=== PATIENT | female | born 1950 | race Caucasian/White ===

== ENCOUNTER 2018-01-31 11:56 | Outpatient (CLI) | payer MEDICARE | END 2018-01-31 11:57 | disposition home or self-care (01) | LOC: BICMAMMO 11:56 | PROVIDERS: ATTEND Obstetrics & Gynecology | DX: Z12.31 Encounter for screening mammogram for malignant neoplasm of breast (principal); Z80.3 Family history of malignant neoplasm of breast | CPT/HCPCS: 77063; 77067 ==

== ENCOUNTER 2018-03-07 10:01 | Outpatient (CLI) | payer MEDICARE | END 2018-03-07 10:02 | disposition home or self-care (01) | LOC: BICMAMMO 10:01 | PROVIDERS: ATTEND Obstetrics & Gynecology | DX: Z13.820 Encounter for screening for osteoporosis (principal); M81.0 Age-related osteoporosis without current pathological fracture | CPT/HCPCS: 77080 ==

== ENCOUNTER 2020-03-07 10:18 | Outpatient (CLI) | payer MEDICARE ==
--- NOTE | 2020-03-07 10:39 | BD ---
EXAM: DEXA bone density examination HISTORY: 69-year-old postmenopausal female for screening COMPARISON: None FINDINGS: L1--bone mineral density 0.825 g/sq cm; T score -1.5 L2--bone mineral density 0.886 g/sq cm; T score -1.3 L3--bone mineral density 0.932 g/sq cm; T score -1.4 L4--bone mineral density 0.972 g/sq cm; T score -0.8 Total L1-L4--bone mineral density 0.911 g/sq cm; T score -1.2 Left femoral neck--bone mineral density0.529; T score -2.9 Total proximal left femur--bone mineral density 0.680; T score -2.2 IMPRESSION: Osteopenia.
== END 2020-03-07 10:19 | disposition home or self-care (01) ==
LOC: BICMAMMO 10:18
PROVIDERS: ATTEND Family Medicine Sports Medicine
DX: M81.0 Age-related osteoporosis without current pathological fracture (principal); M85.88 Other specified disorders of bone density and structure, other site
CPT/HCPCS: 77080

== ENCOUNTER 2023-04-22 09:42 | Day surgery (SDC) | payer MEDICARE ==
[2023-04-22] MEDS ORDERED: Acetaminophen 500 MG TAB PO SCH (10:15)
[2023-04-22] MEDS ORDERED: diphenhydrAMINE 25 MG CAP PO SCH (10:15)
[2023-04-22] MEDS ORDERED: diphenhydrAMINE 25 MG CAP ONE (10:18)
[2023-04-22] MEDS ORDERED: Acetaminophen 500 MG TAB ONE (10:18)
[2023-04-22 16:12] VITALS: BP 168/75; TEMP 98.1
== END 2023-04-22 16:15 | disposition home or self-care (01) ==
LOC: ONC/OP 09:42
PROVIDERS: ATTEND Internal Medicine Hematology & Oncology
DX: D64.9 Anemia, unspecified (principal); D69.6 Thrombocytopenia, unspecified
CPT/HCPCS: 36430; 86850; 86900; 86901; 86920; P9016; J1642

== ENCOUNTER 2023-05-28 08:50 | Day surgery (SDC) | payer MEDICARE ==
[~2023-05-28 08:50] MED LIST: Acetaminophen 500 MG TAB PO SCH; diphenhydrAMINE 25 MG CAP PO SCH
[2023-05-28] MEDS ORDERED: diphenhydrAMINE 25 MG CAP ONE (09:45)
[2023-05-28] MEDS ORDERED: Acetaminophen 500 MG TAB ONE (09:45)
[2023-05-28 15:20] VITALS: BP 161/69; TEMP 98
== END 2023-05-28 13:12 | disposition home or self-care (01) ==
LOC: ONC/OP 08:50
PROVIDERS: ATTEND Internal Medicine Hematology & Oncology
DX: D64.9 Anemia, unspecified (principal); D69.59 Other secondary thrombocytopenia
CPT/HCPCS: 36430; 86850; 86900; 86901; 86920; P9016; J1642

== ENCOUNTER 2023-10-15 08:55 | Outpatient (CLI) | payer MEDICARE | END 2023-10-15 08:56 | disposition home or self-care (01) | LOC: CT 08:55 | PROVIDERS: ATTEND Specialist | DX: R13.12 Dysphagia, oropharyngeal phase (principal); M25.78 Osteophyte, vertebrae | CPT/HCPCS: 70490; 82565; J1642 ==

== ENCOUNTER 2024-02-03 11:17 | Day surgery (SDC) | payer MEDICARE ==
[2024-02-03] MEDS ORDERED: diphenhydrAMINE 25 MG CAP ONE (12:15)
[2024-02-03] MEDS: Acetaminophen 500 MG TAB PO SCH (12:15)
[2024-02-03] MEDS ORDERED: Acetaminophen 500 MG TAB ONE (12:15)
[2024-02-03] MEDS: diphenhydrAMINE 25 MG CAP PO SCH (12:15)
[2024-02-03 15:13] VITALS: TEMP 97.6
[2024-02-03 17:35] VITALS: BP 164/67
== END 2024-02-03 17:32 | disposition home or self-care (01) ==
LOC: ONC/OP 11:17
PROVIDERS: ATTEND Internal Medicine Hematology & Oncology
DX: D64.9 Anemia, unspecified (principal); D69.6 Thrombocytopenia, unspecified
CPT/HCPCS: 36430; 86850; 86900; 86901; 86920; P9016; J1642

== ENCOUNTER 2024-03-14 12:55 | Day surgery (SDC) | payer MEDICARE ==
[2024-03-14] MEDS ORDERED: Acetaminophen 500 MG TAB ONE (13:52)
[2024-03-14] MEDS ORDERED: diphenhydrAMINE 25 MG CAP ONE (13:52)
[2024-03-14] MEDS: Acetaminophen 500 MG TAB PO SCH (13:53)
[2024-03-14] MEDS: diphenhydrAMINE 25 MG CAP PO SCH (13:53)
[2024-03-14 14:51] VITALS: TEMP 98.2
[2024-03-14 17:01] VITALS: BP 195/83
== END 2024-03-14 17:01 | disposition home or self-care (01) ==
LOC: ONC/OP 12:55
PROVIDERS: ATTEND Internal Medicine Hematology & Oncology
DX: D64.9 Anemia, unspecified (principal); D69.6 Thrombocytopenia, unspecified
CPT/HCPCS: 36430; 86850; 86900; 86901; 86920; J1642; P9016